=== PATIENT | female | born 1990 | race Caucasian/White ===

== ENCOUNTER → 2017-05-16 18:59 | Outpatient (CLI) | payer BC, SELFPAY ==
[2017-05-16 21:27] LABS: Group B Strep DNA By PCR Negative (Negative); Internal Control PASS; Probe Check PASS; Specimen Processing Control PASS
== END ==
PROVIDERS: Family Provider Family Medicine; PCP Family Medicine; Visit Provider Obstetrics & Gynecology
DX: Z34.83 Encounter for supervision of other normal pregnancy, third trimester (principal)
CPT/HCPCS: 87081; 87653

== ENCOUNTER → 2017-05-23 17:03 | Outpatient (CLI) | payer BC, SELFPAY ==
[2017-05-23 18:10] LABS: Hematocrit 36.5 % (37-47); Hemoglobin 12.3 g/dl (12.0-15.0); Mean Corp Hgb Conc 33.7 g/gl (32-36); Mean Corpuscular Hgb 29.7 pg (27.0-32.0); Mean Corpuscular Volume 88.2 fL (81-99); Mean Platelet Vol. 12.3 fl (6.2-12.0); Platelet Count 124 K/mm3 (150-450); RBC Distribution Width CV 13.1 % (11.6-14.6); RBC Distribution Width SD 40.1 fl (35.1-43.9); Red Blood Count 4.14 M/mm3 (4.2-5.4); Scan Indicated on CBC? Y/N NO; White Blood Count 9.9 K/mm3 (4.4-11.0)
== END ==
PROVIDERS: Visit Provider Obstetrics & Gynecology
DX: D69.6 Thrombocytopenia, unspecified (principal)
CPT/HCPCS: 36415; 85027

== ENCOUNTER 2017-06-10 18:00 | Inpatient (IN) | payer BC, SELFPAY ==
[2017-06-10 17:06] VITALS: BMI 32.9
[2017-06-10 17:42] LABS: ROM Internal Control Test YES-OK TO RESULT pt. (Internal QC); ROM Patient Test POSITIVE (Negative)
[2017-06-10] MEDS: Oxytocin 30 units/NS 500 ml 30 UNITS/500 ML IV.SOLN IV (19:08)
[2017-06-10 19:12] LABS: Hematocrit 37.9 % (37-47); Hemoglobin 12.6 g/dl (12.0-15.0); Mean Corp Hgb Conc 33.2 g/gl (32-36); Mean Corpuscular Volume 87.1 fL (81-99); Mean Platelet Vol. 12.1 fl (6.2-12.0); Platelet Count 127 K/mm3 (150-450); RBC Distribution Width CV 13.8 % (11.6-14.6); RBC Distribution Width SD 43.9 fl (35.1-43.9); Red Blood Count 4.35 M/mm3 (4.2-5.4); Scan Indicated on CBC? Y/N NO; White Blood Count 8.5 K/mm3 (4.4-11.0)
[2017-06-10] MEDS: Lactated Ringers 1,000 ML 50 ML IV (19:17)
--- NOTE | 2017-06-10 19:30 | NURSING ---
patient states she wants to breastfeed and formula supplement, too. education given and risks/benefits discussed.
[2017-06-11] VITALS (14 sets, daily range): BP systolic 110–133; BP diastolic 50–81; PULSE 75–103; RESP 13–20; TEMP 36.4–37.4; O2SAT 98–100
[2017-06-11] MEDS: Lactated Ringers 1,000 ML 50 ML IV ×3 (01:41→11:55)
--- NOTE | 2017-06-11 02:47 | PCM.PN.BLA ---
Progress Note LABOR PROGRESS NOTE 40 5/7 wk EGA +SROM, unfavorable cervix. Narrow pelvis. Suspect CPD AVSS EFM: Category I 120-130s avg variability with accels to 150-170s. UCs coupling and spacing at times, with UC q 1-5 min Cervix: 0/-3 at approx 1705 on 06/10/17 (presentation) A/P 40+ wk SROM; continue pitocin for up to 24 hr if tolerance of labor. Strongly suspect CPD and pt aware of this via ofc discussion. States her mother needed C/S for not dilating. Continue induction of labor after SROM until criteria met for C/S
[2017-06-11] MEDS: Ondansetron 4 MG/2 ML Vial IV (04:33)
--- NOTE | 2017-06-11 08:08 | PCM.PN.BLA ---
Progress Note INDUCTION AFTER SROM approx 5 pm last night. Now with mec stained fluid Pitocin since admission Epidural in place. EFM category I tracing. UCs q 3-4 mins Progressed to anterior lip 40 4/7 wk EGA . SROM narrow pelvis and presented with unfavorable cervix. Adequate progress. ALLOW TO LABOR DOWN FOR ONE HOUR MAXIMUM and then begin pushing for up to 4 hrs. Continue labor.
--- NOTE | 2017-06-11 10:09 | PCM.PN.BLA ---
Progress Note 40 5/7 wk SROM with unfavorable cvervix at presentation. Narrow arch Epidural in place Pitocin induction after SROM EFM catogory I tracing. 120-140s overall. Accels to 150s-160s. Early decels noted. One episode during cervix check of FHR with good variability but with decleration of FHT to as low as 90's (up to 3-4 min in 90's but with intermittent return and full rturn to baseline after 6-7 mins -- occured approx 7:30 am with check then) UCs q 1 - 4 1/2 mins Cervix check at 7:30 am and again when I saw pt last both with lip at R side. Adan bulb reduced with my last check. No change in cervix per information in computer Call placed to Felisa who has pt in high seated position and plans to recheck pt soon. Will call back with updated exam . A/P: 40 5/7 wk narrow pelvis. SROM and adequate progress to anterior lip more than 2 hrs ago. Rechecking cervix. Continue labor until failure to progress 4 hr with adqeuate UC / 6 hr with inadquate UCs or if failure to descend after 4 hours of pushing.
--- NOTE | 2017-06-11 12:14 | PCM.PN.BLA ---
Progress Note LABOR PROGRESS NOTE 40 5/7 wk Pitocin induction after SROM last night 5 pm approx. Reported complete at 11:36 check Adan bulb reduced by nurse, and replaced superior to vtx reports blood tinged urine to very little urine out EFM: Category I tracing. 120-130s with accels avg variability. some earlies UCs q 1-4 mins. at times dysfunctional appearing. A/P: 40 5/7 wk SROM , Pitocin induction after SROM. Progressed to complete. Likely inadequate pelvis . Begin pushing and will allow pushing for up to 4 hrs. Pt advised in ofc of all findings including potential long labor , pushing and ending in C section. Will continue labor for now with pushing for up to 4 hrs.
--- NOTE | 2017-06-11 13:48 | PCM.PN.BLA ---
Progress Note LABOR PROGRESS NOTE Comfortable w/ epidural. AVSS Pitocin induction after SROM last night at 5 PM. EFM category I tracing. complete since 12:38... and pushing last 1 1/2 hr (approx) of time since called complete. UCs appear adequate. CX: vtx remains high. LOP. A/P : 40 5/7 wk SROM 9 hr ago. Complete and pushing but no descent at this point. Discussed finding with pt and spouse, family member in room. Again, likely CPD and pt has been advised of this. May continue to push for 3-4 hours. Patient states she is willing to push for 3 hrs. will continue to push for now to given maximum trial of vaginal delivery.
--- NOTE | 2017-06-11 13:52 | PN_ITS ---
Progress Note LABOR PROGRESS NOTE Comfortable w/ epidural. AVSS Pitocin induction after SROM last night at 5 PM. EFM category I tracing. complete since 12:38... and pushing last 1 1/2 hr ( approx) of time since called complete. UCs appear adequate. CX: vtx remains high. LOP. A/P : 40 5/7 wk SROM 9 hr ago. Complete and pushing but no descent at this point. Discussed finding with pt and spouse, family member in room. Again, likely CPD and pt has been advised of this. May continue to push for 3-4 hours. Patient states she is willing to push for 3 hrs. will continue to push for now to given maximum trial of vaginal delivery.
--- NOTE | 2017-06-11 15:00 | PCM.PN.BLA ---
Progress Note LABOR PROGRES NOTE Pt complete since 11:30 am. AVSS Category I tracing. UCs appear adequate Bloody urine in dye bag. EXAM: no further descent in 3 1/2 hrs. Pt declines further pushing and is requesting to proceed with C section. A/P: 40 5/7 wk SROM x 10 hr, to complete 3 1/2 hr ago with pushing almost 3 hrs. DECLINES FURTHER PUSHING AND REQUESTING C section at this point. Will proceed to C/S for CPD.
--- NOTE | 2017-06-11 15:08 | PCM.DCCSEC ---
Discharge Diet: No Restrictions Discharge Activity: May not drive while taking narcotic pain medications., May Shower, May Take a Tub Bath May resume sexual activity in: 4-6 weeks Lifting Restrictions: 20 pounds Additional Activity Instructions:: Nothing in the vagina for 4-6 weeks. You may return to work/school in 6 weeks. Change Dressing in (Days):: 14 Remove Dressing in (days):: 14 Cleanse incision/area with: Soap & Water, Keep Dressing Clean & Dry Additional Instructions: If you experience any of the following, contact your healthcare provider. Bleeding that soaks a pad every hour for 2 hours Fever 100.4 or higher Unrelieved incision or abdominal pain Swelling, redness, discharge or bleeding from your incision Problems urinating (including inability to urinate or burning while urinating). Visual changes Severe headache Flu-like symptoms Pain or redness in one of both of your breasts Pain, warmth, tenderness or swelling in your legs, especially the calf area Frequent nausea and vomiting Symptoms of depression or anxiety If you experience any of the following, call 911 or go to the nearest Emergency Room. Chest pain Problems breathing Seizure activity Partial or complete paralysis of a body part, slurred speech, weakness or drooping of the face, or a sudden inability to walk or hold your balance Allergies/Adverse Reactions: Allergies No Known Allergies Allergy (Verified 06/10/17 19:55) Medications to take at Discharge Vit No.130/Iron/FA [ Tablet] 1 tab PO DAILY 06/10/17 Docusate Sodium [Colace] 100 mg PO BID 14 Days #30 cap 06/11/17 Naproxen [Naprosyn] 250 - 500 mg PO TID PRN #30 tab 06/11/17 Oxycodone [Oxyir] 5 - 10 mg PO Q6H PRN PRN 7 Days #28 tab 06/11/17 The following prescriptions were given: Oxycodone [Oxyir] 5 - 10 mg PO Q6H PRN PRN 7 Days #28 tab PRN Reason: Mod-Severe Pain (-01/25) Docusate Sodium [Colace] 100 mg PO BID 14 Days #30 cap Naproxen [Naprosyn] 250 - 500 mg PO TID PRN #30 tab PRN Reason: Mild-Mod Pain (1-08/25) Orders to be completed after discharge: Electric breast pump Time Frame: 1 Year, Location: None Selected Follow-Up: Call to make an appointment with your doctor for an incision check in 1-2 weeks. You will also need a 6 week post- follow up appointment. Please Follow Up With: Stella Washburn MD - [phone] When: Call to make an appointment for an incision check in 2 weeks. Primary Care Physician: Dale Hoffmann DO [Primary Care Provider] - Proposed Discharge Date: 06/14/17
[2017-06-11] MEDS: Sodium Citrate/Citric Acid 30 ML UDC PO (15:13)
--- NOTE | 2017-06-11 15:13 | DCINST_ITS ---
Discharge Diet: No Restrictions Discharge Activity: May not drive while taking narcotic pain medications., May Shower, May Take a Tub Bath May resume sexual activity in: 4-6 weeks Lifting Restrictions: 20 pounds Additional Activity Instructions:: Nothing in the vagina for 4-6 weeks. You may return to work/school in 6 weeks. Change Dressing in (Days):: 14 Remove Dressing in (days):: 14 Cleanse incision/area with: Soap & Water, Keep Dressing Clean & Dry Additional Instructions: If you experience any of the following, contact your healthcare provider. * Bleeding that soaks a pad every hour for 2 hours * Fever 100.4 or higher * Unrelieved incision or abdominal pain * Swelling, redness, discharge or bleeding from your incision * Problems urinating (including inability to urinate or burning while urinating) . * Visual changes * Severe headache * Flu-like symptoms * Pain or redness in one of both of your breasts * Pain, warmth, tenderness or swelling in your legs, especially the calf area * Frequent nausea and vomiting * Symptoms of depression or anxiety If you experience any of the following, call 911 or go to the nearest Emergency Room. * Chest pain * Problems breathing * Seizure activity * Partial or complete paralysis of a body part, slurred speech, weakness or drooping of the face, or a sudden inability to walk or hold your balance Allergies/Adverse Reactions: Allergies No Known Allergies Allergy (Verified 06/10/17 19:55) Medications to take at Discharge Vit No.130/Iron/FA [ Tablet] 1 tab PO DAILY 06/10/17 Docusate Sodium [Colace] 100 mg PO BID 14 Days #30 cap 06/11/17 Naproxen [Naprosyn] 250 - 500 mg PO TID PRN #30 tab 06/11/17 Oxycodone [Oxyir] 5 - 10 mg PO Q6H PRN PRN 7 Days #28 tab 06/11/17 The following prescriptions were given: Oxycodone [Oxyir] 5 - 10 mg PO Q6H PRN PRN 7 Days #28 tab PRN Reason: Mod-Severe Pain (-01/25) Docusate Sodium [Colace] 100 mg PO BID 14 Days #30 cap Naproxen [Naprosyn] 250 - 500 mg PO TID PRN #30 tab PRN Reason: Mild-Mod Pain (1-5/10) Orders to be completed after discharge: Electric breast pump Time Frame: 1 Year, Location: None Selected Follow-Up: Call to make an appointment with your doctor for an incision check in 1-2 weeks. You will also need a 6 week post- follow up appointment. Please Follow Up With: Stella Washburn MD - [phone] When: Call to make an appointment for an incision check in 2 weeks. Primary Care Physician: Dale Hoffmann DO [Primary Care Provider] - Proposed Discharge Date: 06/14/17
[2017-06-11] MEDS: Lactated Ringers 1,000 ML 999 ML IV (15:30)
[2017-06-11] MEDS: Cefazolin 2 GM in 0.9% Normal Saline 100 ML IV (15:40)
--- NOTE | 2017-06-11 15:48 | PLAC_PTH ---
PATIENT: EZRA SLAUGHTER LOC: [facility] U#:[id number] AGE/SX: 26/F ROOM: [facility] RE06/10/[address]: Dr. Stella Washburn MD : 1990 BED: 1 DIS: 06/14/2017 SPEC #: [id number] RECD: 06/11/17 16:56 STATUS: PITER VAIBHAV #: [id number] ANA: 06/11/17 15:[address]: Stella Washburn DEPT: SURGICAL PATHOLOGY RECD BY: Syed Estrada ENTERED: 06/14/17 08:41 SP TYPE: PLACENTA OTHR DR: Dr. Dale Hoffmann, DO Tissues: Placenta, NOS Procedures: Surgery Specimen Level V HEADER OPERATION: Primary section PRE-OP DIAGNOSIS: 40 5/7 wk EGA , cephalopelvic disproportion TISSUE SUBMITTED: Placenta MICROSCOPIC DIAGNOSIS Placenta: Placental disc - third trimester placenta (714 gm). - Focal villous congestion and hemorrhage. Membranes - no pathologic diagnosis. Umbilical cord - three blood vessels and no pathologic diagnosis. KRISTINE:chan 06/15/17 MICROSCOPIC DESCRIPTION Slides are reviewed. GROSS DESCRIPTION SPECIMEN: PLACENTA / CLINICAL INFORMATION: A. Weight: 4.192 kg B. Gestational Age: 40 weeks C. Sex: Male PLACENTAL WEIGHT (POST FIXATION): 714 gm PLACENTAL DIMENSIONS: 19 x 18 x 3.5 cm PLACENTAL SHAPE: Usual ovoid PLACENTAL WEIGHT FOR GESTATIONAL AGE: Over 99th percentile MEMBRANES ? Present. A. Insertion: Marginal B. Site of rupture from edge: The membranes are disrupted. Distance of rupture cannot be assessed due to the disrupted nature of the membranes. Only a few fragments of membrane are noted. Completeness of the membranes cannot be assessed. C. Color of membrane: Trejo, mucoidy D. Abnormalities: None UMBILICAL CORD - Present A. Color: Trejo-meng B. Insertion: Paracentral C. Length: 44 cm D. Diameter: 1 cm E. Number of vessels: Three F. Abnormalities: None PLACENTAL DISC - Present A. Color of surface: Trejo-meng B. surface abnormalities: None C. Maternal cotyledons: Intact with minimal tears D. Attached retro placental clot: No clot E. Cut surface: Dark red and spongy F. Lesions: None G. Separate clot: Absent SECTIONS SUBMITTED: 1. Membrane roll 2. Cord, maternal end 3. Cord, end 4. Placental disc, and maternal surfaces 5. Placental disc, and maternal surfaces 6. Placental disc, and maternal surfaces SJ:chan 06/14/17 TC:5 CPT: 49660
[2017-06-11] MEDS: Methylergonovine 0.2 MG/ML Ampul IM (15:54)
[2017-06-11] MEDS: Oxytocin 30 units/NS 500 ml 30 UNITS/500 ML IV.SOLN 167 UNITS IV (16:00)
[2017-06-11] MEDS: Lactated Ringers 1,000 ML 100 ML IV (16:00)
[2017-06-11] MEDS: Ketorolac 30 MG/ML Syringe IV ×2 (16:05→21:34)
--- NOTE | 2017-06-11 16:11 | PCM.OP.BLANK ---
Operative Report Date of Procedure: 06/11/17 PROCEDURE: Primary C section Preoperative diagnosis: 40 5/7 wk EGA SROM, Pitocin induction Cephalopelvic disproportion Postop diagnosis: 40 5/7 wk EGA SROM, Pitocin induction Cephalopelvic disproportion Anesthesia: Epidural per Beata Barnes MD and Kali Enriquez CRNA Surgeon: Stella Washburn MD Retail Sales Merchandiser Development: DICK Veloz EBL 800 cc Complications: none Drains: Adan draining bloody urine at the beginning of the case, and clear yellow urine by the end of the case Fluids: replacement LR Findings: At amniotomy, meconium stained fluid was noted. [place] viable male in vertex presentation, OP. Apgars 9/9, Baby weight: 9# 15 oz There was a normal appearing uterus, fallopian tubes and ovaries bilaterally. PATH: Cord gases, placenta to path. Narrative account: After the risks, benefits and alternatives of the procedure were reviewed with the patient, informed consent was obtained. The patient was taken to the Operating room with an IV running,an epidural catheter in place and a Adan in place (draining blood tinged urine). The epidural was dosed to surgical levels. The patient was positioned in dorsal supine position with leftward displacement of the uterus , briefly frog-legged for vaginal vault prep, and then repositioned again to dorsal supine position with leftward displacement of the uterus, and prepped and draped in the usual sterile fashion. Once the epidural was deemed adequate, a Pfannenstiel skin incision was created using the knife . The incision was carried down to the rectus fascia using the knife. The fascia was nicked in the midline. The fascial incision was extended bilaterally using curved Franklin scissors. The superior aspect of the fascial incision was grasped with Nubia clamps and tented up and the underlying rectus abdominal muscles were dissected free. In a similar manner, the inferior aspect of the facial incision was grasped with Nubia clamps tented up and the underlying rectus abdominal muscles were dissected free. The rectus abdominis muscles were divided by blunt dissection and sharp dissection. The peritoneum was was identified and entered by blunt dissection. The rectus abdominis muscles and peritoneal incision were stretched laterally and a bladder blade was inserted. A bladder flap was created with Metzenbaum scissors and the bladder blade was removed and reinserted. The uterine incision was then created using Metzenbaum scissors. The uterine incision was extended by blunt dissection in a caudad- cephalad orientation using the pickling drum operator's fingertips. Clear fluid was noted at amniotomy. The Vertex was then delivered. followed by the anterior (R) shoulder and then the posterior (L) shoulder. The shoulders and rest of the body delivered easily. The OP and nares were bulb suctioned on the abdomen. The cord was clamped x two and cut and the baby was shown briefly to his parents and then passed off to the nurse awaiting delivery and Dr Dang. The baby had a spontaneous vigorous cry and very good tone . The umbilical cord was doubly clamped. The placenta was then delivered and set aside . The uterus was exteriorized and cleared of clots and debris . The uterine incision was repaired with 1 Vicryl in a running locked fashion. A second imbricating layer was placed along the incision using 1 Monocryl. Excellent hemostasis was noted. The uterus, fallopian tubes and ovaries were then inspected and returned to the abdominal cavity. The gutters were cleared of clots and debris. The uterine incision and fallopian tubes were again inspected. And excellent hemostasis was noted. The rectus abdominis and peritoneal edges were reapproximated in the midline with interrupted vertical mattress stitches of 1 Vicryl . Excellent hemostasis was noted at the subfascial space The fascia was closed in a running nonlocked fashion with 1 Vicryl. The Subcutaneous fatty tissue was Bovie cauterized as needed for hemostasis. This layer was then reapproximated with a nonlocked running 3-0 Vicryl. The skin edges were closed in a Subcuticular stitch of 4-0 Monocryl. The incision was cleansed. Seri-strips, and a Mepilex dressing were applied. The patient was then transferred to the recovery room bed in stable condition after tolerating the procedure well. Sponge, lap, needle and instrument counts correct times two. Medications given preop and intraoperatively included: Ancef two grams IV was given chief librarian extension department to the operating room. The patient also received Pitocin given IV after cord clamp, and Toradol 30 mg IV after cord clamp. Methergine 0.2 mg IM x one in L thigh was also given for mild uterine atony noted just after delivery of the infant. For a complete listing of medications given preop and intraoperatively, please see the anesthesia record.
--- NOTE | 2017-06-11 16:21 | OP.PCM_ITS ---
Operative Report Date of Procedure: 06/11/17 PROCEDURE: Primary C section Preoperative diagnosis: 40 5/7 wk EGA SROM, Pitocin induction Cephalopelvic disproportion Postop diagnosis: 40 5/7 wk EGA SROM, Pitocin induction Cephalopelvic disproportion Anesthesia: Epidural per Beata Barnes MD and Kali Enriquez CRNA Surgeon: Stella Washburn MD Animal Herder: DICK Veloz EBL 800 cc Complications: none Drains: Adan draining bloody urine at the beginning of the case, and clear yellow urine by the end of the case Fluids: replacement LR Findings: At amniotomy, meconium stained fluid was noted. [place] viable male in vertex presentation, OP. Apgars 9/9, Baby weight: 9# 15 oz There was a normal appearing uterus, fallopian tubes and ovaries bilaterally. PATH: Cord gases, placenta to path. Narrative account: After the risks, benefits and alternatives of the procedure were reviewed with the patient, informed consent was obtained. The patient was taken to the Operating room with an IV running,an epidural catheter in place and a Adan in place (draining blood tinged urine). The epidural was dosed to surgical levels. The patient was positioned in dorsal supine position with leftward displacement of the uterus , briefly frog-legged for vaginal vault prep, and then repositioned again to dorsal supine position with leftward displacement of the uterus, and prepped and draped in the usual sterile fashion. Once the epidural was deemed adequate, a Pfannenstiel skin incision was created using the knife . The incision was carried down to the rectus fascia using the knife. The fascia was nicked in the midline. The fascial incision was extended bilaterally using curved Franklin scissors. The superior aspect of the fascial incision was grasped with Nubia clamps and tented up and the underlying rectus abdominal muscles were dissected free. In a similar manner, the inferior aspect of the facial incision was grasped with Nubia clamps tented up and the underlying rectus abdominal muscles were dissected free. The rectus abdominis muscles were divided by blunt dissection and sharp dissection. The peritoneum was was identified and entered by blunt dissection. The rectus abdominis muscles and peritoneal incision were stretched laterally and a bladder blade was inserted. A bladder flap was created with Metzenbaum scissors and the bladder blade was removed and reinserted. The uterine incision was then created using Metzenbaum scissors. The uterine incision was extended by blunt dissection in a caudad- cephalad orientation using the vulcanizing press operator's fingertips. Clear fluid was noted at amniotomy. The Vertex was then delivered. followed by the anterior (R) shoulder and then the posterior (L ) shoulder. The shoulders and rest of the body delivered easily. The OP and nares were bulb suctioned on the abdomen. The cord was clamped x two and cut and the baby was shown briefly to his parents and then passed off to the nurse awaiting delivery and Dr Dang. The baby had a spontaneous vigorous cry and very good tone . The umbilical cord was doubly clamped. The placenta was then delivered and set aside . The uterus was exteriorized and cleared of clots and debris . The uterine incision was repaired with 1 Vicryl in a running locked fashion. A second imbricating layer was placed along the incision using 1 Monocryl. Excellent hemostasis was noted. The uterus, fallopian tubes and ovaries were then inspected and returned to the abdominal cavity. The gutters were cleared of clots and debris. The uterine incision and fallopian tubes were again inspected. And excellent hemostasis was noted. The rectus abdominis and peritoneal edges were reapproximated in the midline with interrupted vertical mattress stitches of 1 Vicryl . Excellent hemostasis was noted at the subfascial space The fascia was closed in a running nonlocked fashion with 1 Vicryl. The Subcutaneous fatty tissue was Bovie cauterized as needed for hemostasis. This layer was then reapproximated with a nonlocked running 3-0 Vicryl. The skin edges were closed in a Subcuticular stitch of 4-0 Monocryl. The incision was cleansed. Seri-strips , and a Mepilex dressing were applied. The patient was then transferred to the recovery room bed in stable condition after tolerating the procedure well. Sponge, lap, needle and instrument counts correct times two. Medications given preop and intraoperatively included: Ancef two grams IV was given appellate conferee to the operating room. The patient also received Pitocin given IV after cord clamp, and Toradol 30 mg IV after cord clamp. Methergine 0.2 mg IM x one in L thigh was also given for mild uterine atony noted just after delivery of the . For a complete listing of medications given preop and intraoperatively, please see the anesthesia record.
--- NOTE | 2017-06-11 18:51 | NURSING ---
EPIDURAL CATHETER REMOVED, BLUE TIP INTACT. PT TOLERATED WELL.
[2017-06-12] VITALS (13 sets, daily range): BP systolic 109–133; BP diastolic 52–71; PULSE 79–99; RESP 16–18; TEMP 36.6–37.2; O2SAT 97–100
[2017-06-12] MEDS: Ketorolac 30 MG/ML Syringe IV ×4 (03:39→21:58)
[2017-06-12] MEDS: Lactated Ringers 1,000 ML 100 ML IV (04:38)
[2017-06-12 06:10] LABS: Hematocrit 30.5 % (37-47); Hemoglobin 9.9 g/dl (12.0-15.0); Mean Corp Hgb Conc 32.5 g/gl (32-36); Mean Corpuscular Hgb 28.4 pg (27.0-32.0); Mean Corpuscular Volume 87.6 fL (81-99); Mean Platelet Vol. 11.6 fl (6.2-12.0); Platelet Count 76 K/mm3 (150-450); RBC Distribution Width CV 13.9 % (11.6-14.6); RBC Distribution Width SD 44.5 fl (35.1-43.9); Red Blood Count 3.48 M/mm3 (4.2-5.4); White Blood Count 12.6 K/mm3 (4.4-11.0)
[2017-06-12 06:30] LABS: Scan Indicated on CBC? Y/N NO
--- NOTE | 2017-06-12 08:01 | PCM.PN.OB ---
Subjective: POD#1 Primary C Section for CPD. Doing well. Breast feeding well. No concerns. Pain control adequate. no N/V. Asking about eating. - Physical Exam General: Alert, Oriented x3, Cooperative, No apparent distress HEENT: Atraumatic Neck: Supple Abdomen: Soft - fundus firm tender cw postop status at 1-2 cm inferior to umbilicus Extremities: Edema Skin: Incision - Mepilex in place. CDI. Neurological: Cranial nerves II-XII grossly intact Psych/Mental Status: Normal Affect Vital Signs Temp Pulse Resp BP Pulse Ox 97.8 F 91 16 115/64 100 06/12/17 07:36 06/12/17 07:36 06/12/17 07:36 06/12/17 07:36 06/12/17 07:36 Oxygen Delivery Method Room Air Weight: 89.8 kg Body Mass Index (BMI) 32.9 Intake and Output for Last 24 Hours 06/10/17 06/11/17 06/12/17 23:59 23:59 23:59 Intake Total 50 / 50 5893 / 5893 948 / 948 Output Total 500 / 500 1250 / 1250 550 / 550 Balance -450 / -450 4643 / 4643 398 / 398 Laboratory Tests Past 24 Hrs 06/12/17 05:55 WBC 12.6 H RBC 3.48 L Hgb 9.9 L Hct 30.5 L MCV 87.6 MCH 28.4 MCHC 32.5 RDW 13.9 RDW Differential 44.5 H Plt Count 76 L MPV 11.6 Assessment/Plan POD#1 Primary C section for CPD Stable postop. Inc diet and activity as tolerated. D/C dye for voiding trial. IV to S/L for continued toradol. Continue care.
[2017-06-12] MEDS: Ferrous Sulfate 325 MG Tablet PO ×2 (09:18→16:12)
[2017-06-12] MEDS: 0.9% Saline Lock 10 ML Syringe IV ×2 (09:18→15:19)
[2017-06-12] MEDS: Prenatal Vits Tablet 1 TABLET PO (11:48)
[2017-06-12] MEDS: Senna/Docusate Sodium 1 Tablet PO (11:48)
[2017-06-12] MEDS: oxyCODONE 5 MG Tablet PO ×2 (16:12→20:31)
[2017-06-13 01:48] VITALS: BP 105/59; PULSE 82; RESP 16; TEMP 36.6
[2017-06-13] MEDS: Ketorolac 30 MG/ML Syringe IV ×2 (03:10→10:15)
[2017-06-13] MEDS: 0.9% Saline Lock 10 ML Syringe IV ×2 (03:10→10:16)
[2017-06-13] MEDS: oxyCODONE 5 MG Tablet PO ×5 (03:20→22:00)
--- NOTE | 2017-06-13 07:56 | PCM.DC.SUM ---
Discharge Date and Diagnosis Date of Admission: 06/10/17 - 40+ wk likely CPD. SROM Date of Discharge: 06/13/17 - S/P induction of labor to C/S Hospital Course and Treatment Operations: - - Induction of labor C section delivery for CPD Summary of Care Provided: The patient is a 26 year old female who presents at 5 pm on 06/10/17 with CC of gush of fluid. Vtx high and unfavorable cervix. Pt advised in ofc of likely CPD given pelvis. Admittent and pitocin induction initiated. Progressed to complete after several hours at 9 cm/ anterior lip. C section performed at pt request: no further descent and pushed approx 3 hrs (willing to push 3 hr, not more). Delivered 9# 15 oz male. Ap 12/25. C section uncomplicated Postop course uneventful. Home on POD#2 (or may elect to stay until POD#3) RTO in 2 wk for postop check. Discharge Diet: No Restrictions Discharge Activity: May not drive while taking narcotic pain medications., May Shower, May Take a Tub Bath May resume sexual activity in: 4-6 weeks Additional Activity Instructions:: Nothing in the vagina for 4-6 weeks. You may return to work/school in 6 weeks. Change Dressing in (Days):: 14 Remove Dressing in (days):: 14 Cleanse incision/area with: Soap & Water, Keep Dressing Clean & Dry Home Medications: Medications to take at Discharge Vit No.130/Iron/FA [ Tablet] 1 tab PO DAILY 06/10/17 Docusate Sodium [Colace] 100 mg PO BID 14 Days #30 cap 06/11/17 Naproxen [Naprosyn] 250 - 500 mg PO TID PRN #30 tab 06/11/17 Oxycodone [Oxyir] 5 - 10 mg PO Q6H PRN PRN 7 Days #28 tab 06/11/17 Following Prescrptions Were Given to Patient: Oxycodone [Oxyir] 5 - 10 mg PO Q6H PRN PRN 7 Days #28 tab PRN Reason: Mod-Severe Pain (4-10/10) Docusate Sodium [Colace] 100 mg PO BID 14 Days #30 cap Naproxen [Naprosyn] 250 - 500 mg PO TID PRN #30 tab PRN Reason: Mild-Mod Pain (1-5/10) Other Amb Orders: Electric breast pump Time Frame: 1 Year, Location: None Selected Primary Care Physician: Dale Hoffmann DO [Primary Care Provider] - Please Follow Up With: Stella Washburn MD - [phone] When: Call to make an appointment for an incision check in 2 weeks. Meaningful Use Info Meaningful Use Diagnoses (Choose all that apply): None applicable
--- NOTE | 2017-06-13 07:59 | PCM.PN.OB ---
Subjective: POD#2 Primary C/S CPD Drowsy , rouses to voice and touch. States tired. Nursing baby, but baby not wanting to nurse last night so gave a bottle which he drank well. She is considering pumping to bottle feed breast milk Voiding well. No BM yet. - Physical Exam General: Alert, Oriented x3, Cooperative, No apparent distress HEENT: Atraumatic Neck: Supple Abdomen: Soft - Tender consistent with postop check, at approx 1 cm superior to umbilicus Neurological: Cranial nerves II-XII grossly intact Psych/Mental Status: Normal Affect Vital Signs Temp Pulse Resp BP Pulse Ox 97.8 F 82 16 105/59 L 99 06/13/17 01:48 06/13/17 01:48 06/13/17 01:48 06/13/17 01:48 06/12/17 19:46 Oxygen Delivery Method Room Air Weight: 89.8 kg Body Mass Index (BMI) 32.9 Intake and Output for Last 24 Hours 06/11/17 06/12/17 06/13/17 23:59 23:59 23:59 Intake Total 5893 / 5893 2587 / 2587 Output Total 1250 / 1250 2100 / 2100 Balance 4643 / 4643 487 / 487 Assessment/Plan POD#2 Primary C section for CPD Stable postop. D/C home today or tomorrow per pt request. would like to see how the day goes , would like to go home today. D/C saline lock.
[2017-06-13 08:15] VITALS: BP 117/65; PULSE 84; RESP 16; TEMP 36.8; O2SAT 97
[2017-06-13] MEDS: Senna/Docusate Sodium 1 Tablet PO (08:57)
[2017-06-13] MEDS: Ferrous Sulfate 325 MG Tablet PO ×2 (08:57→17:13)
[2017-06-13] MEDS: Hydrocortisone 2.5% Crm 1 APPLIC TOPICAL (08:59)
[2017-06-13] MEDS: Prenatal Vits Tablet 1 TABLET PO (12:56)
[2017-06-13 14:00] VITALS: BP 113/63; PULSE 74; RESP 16; TEMP 36.8; O2SAT 97
[2017-06-13] MEDS: Naproxen 250 MG Tablet PO (18:33)
[2017-06-13 20:05] VITALS: BP 118/77; PULSE 83; RESP 18; TEMP 36.8; O2SAT 96
[2017-06-13] MEDS: Acetaminophen 500 MG Tablet 1000 MG PO (21:59)
[2017-06-14] MEDS: Naproxen 250 MG Tablet PO ×2 (02:37→10:22)
[2017-06-14 02:39] VITALS: BP 122/75; PULSE 88; RESP 16; TEMP 36.2; O2SAT 99
[2017-06-14] MEDS: oxyCODONE 5 MG Tablet PO (06:04)
--- NOTE | 2017-06-14 07:26 | PCM.PN.OB ---
Subjective: POD#3 elected to stay last night . Had BM yesterday. Voiding well. Doing well. Pain control adequate milk in now. Dressing still in place and would like to leave it for now. Ready to go home today. - Physical Exam General: Alert, Oriented x3, Cooperative, No apparent distress HEENT: Atraumatic Neck: Supple Abdomen: Soft - Fundus firm tender c/w postop status and superior to umbilicus x 2 cm. Skin: Incision - dressing CDI Psych/Mental Status: Normal Affect Vital Signs Temp Pulse Resp BP Pulse Ox 97.1 F L 88 16 122/75 H 99 06/14/17 02:39 06/14/17 02:39 06/14/17 02:39 06/14/17 02:39 06/14/17 02:39 Oxygen Delivery Method Room Air Weight: 89.8 kg Body Mass Index (BMI) 32.9 Intake and Output for Last 24 Hours 06/12/17 06/13/17 06/14/17 23:59 23:59 23:59 Intake Total 2587 / 2587 Output Total 2100 / 2100 Balance 487 / 487 Assessment/Plan POD#3 Primary C section for CPD Stable postop. D/C home today RTO in 1 wk (postop check and will remove mepilex then)
[2017-06-14 09:00] VITALS: BP 122/69; PULSE 83; RESP 16; TEMP 36.6; O2SAT 97
[2017-06-14] MEDS: Prenatal Vits Tablet 1 TABLET PO (10:22)
[2017-06-14] MEDS: Ferrous Sulfate 325 MG Tablet PO (10:23)
--- NOTE | 2017-06-14 11:36 | NURSING ---
baby bands verified by nurse and mother. mother signed baby discharge sheet.
[2017-06-16 10:52] LABS: Pathology Specimen OB SEE PATHOLOGY REPORT
== END 2017-06-14 11:50 | disposition home or self-care (01) | DRG 766 ==
LOC: WPOUT 18:21
PROVIDERS: Admitting Provider Obstetrics & Gynecology; Family Provider Family Medicine; PCP Family Medicine; Visit Provider Obstetrics & Gynecology
DX: O33.1 Maternal care for disproportion due to generally contracted pelvis (principal); O48.0 Post-term pregnancy; O77.0 Labor and delivery complicated by meconium in amniotic fluid; Z37.0 Single live birth; Z3A.40 40 weeks gestation of pregnancy; Z87.891 Personal history of nicotine dependence
CPT/HCPCS: 59025; 59050; 84112; 85027; 86850; 86900; 88307; 99218; J7120; A4216; G0378; J2405

== ENCOUNTER 2017-06-16 15:05 | Outpatient (CLI) | payer BC, SELFPAY | END 2017-06-16 16:15 | disposition home or self-care (01) | LOC: WPOUT 15:10 → WP 15:13 | PROVIDERS: Family Provider Family Medicine; PCP Family Medicine; Visit Provider Obstetrics & Gynecology | DX: Z39.1 Encounter for care and examination of lactating mother (principal) ==

== ENCOUNTER → 2019-08-24 16:03 | Outpatient (CLI) | payer OTHER, SELFPAY ==
[2019-08-24 08:40] VITALS: BMI 26.6
== END ==
PROVIDERS: PCP Family Medicine; Referring Provider Nurse Practitioner Women's Health; Visit Provider Nurse Practitioner Women's Health
DX: R30.0 Dysuria (principal)
CPT/HCPCS: 87086; 87088

== ENCOUNTER → 2019-09-06 17:07 | Outpatient (CLI) | payer OTHER, SELFPAY ==
[2019-09-06 12:58] VITALS: BMI 26.6
[2019-09-06 17:55] LABS: Amphetamine Urine VISTA NEGATIVE (<1000 ng/mL); Barbiturate Urine VISTA NEGATIVE (< 200 ng/mL); Benzodiazepine Urine VISTA NEGATIVE (< 200 ng/mL); Cocaine Urine VISTA NEGATIVE (< 300 ng/mL); Ecstacy Urine VISTA NEGATIVE (< 500 ng/mL); Methadone Urine VISTA NEGATIVE (< 300 ng/mL); PCP Urine VISTA NEGATIVE (< 25 ng/mL); THC Urine VISTA NEGATIVE (< 50 ng/mL); Vista UDS pH Range 6
[2019-09-06 18:52] LABS: Chlamydia Trachomatis by PCR Negative (Negative); Neisserai gonorrhoeae by PCR Negative (Negative); Probe Check PASS; Sample Adequacy Control PASS; Specimen Processing Control PASS
[2019-09-11 20:44] LABS: HPV Reflexed? NOT INDICATED
== END ==
PROVIDERS: PCP Family Medicine; Visit Provider Obstetrics & Gynecology
DX: Z12.4 Encounter for screening for malignant neoplasm of cervix (principal)
CPT/HCPCS: 80307; 87086; 87491; 87591; 88175; G0145

== ENCOUNTER → 2019-09-18 09:06 | Outpatient (CLI) | payer OTHER, SELFPAY ==
[2019-09-06 12:58] VITALS: BMI 26.6
[2019-09-18 10:03] LABS: Absolute Lymphocyte Count 1.14 X10^3/uL (0.83-4.51); Absolute Neutrophil Count 5.2 X10^3/uL (2.0-7.7); Basophil# 0.02 X10^3/uL; Basophil% 0.3 % (0-1); Eosinophil# 0.03 X10^3/uL; Eosinophils% 0.4 % (0-5); Hematocrit 39.1 % (37-47); Lymphocyte # 1.14 X10^3/ul (4.0); Lymphocyte % 16.7 % (19-41); Mean Corp Hgb Conc 33.2 g/dL (32-36); Mean Corpuscular Hgb 29.3 pg (27.0-32.0); Mean Corpuscular Volume 88.1 fL (81-99); Mean Platelet Vol. 11.7 fl (6.2-12.0); Monocyte# 0.46 X10^3/uL; Monocyte% 6.7 % (0-10); NRBC Flagged by Analyzer 0 % (0-5); Neutrophil # 5.15 X10^3/uL (2.7-7.7); Neutrophil % 75.6 % (47-70); Platelet Count 133 K/mm3 (150-450); RBC Distribution Width CV 12.3 % (11.6-14.6); Red Blood Count 4.44 M/mm3 (4.2-5.4); White Blood Count 6.8 K/mm3 (4.4-11.0)
[2019-09-18 11:15] LABS: HIV - WCH Non-Reactive (Nonreactive); Hepatitis B Surface Antigen Non-Reactive (Nonreactive); Hepatitis C Antibody Non-Reactive (Nonreactive); Rubella IgG 282.4 IU/mL
[2019-09-20 00:55] LABS: Rapid Plasmin Reagin (RPR) NONREACTIVE (NONREACTIVE)
== END ==
PROVIDERS: PCP Family Medicine; Referring Provider Obstetrics & Gynecology; Visit Provider Obstetrics & Gynecology
DX: Z34.81 Encounter for supervision of other normal pregnancy, first trimester (principal)
CPT/HCPCS: 36415; 85025; 86592; 86703; 86762; 86803; 86850; 86900; 86901; 87340

== ENCOUNTER → 2019-09-21 12:27 | Outpatient (CLI) | payer OTHER, SELFPAY ==
[2019-09-06 12:58] VITALS: BMI 26.6
--- NOTE | 2019-09-21 12:29 | US_ITS ---
STUDY: FIRST TRIMESTER OBSTETRICAL ULTRASOUND REASON FOR EXAM: Female, 29 years old WELL BEING LMP: July 06, 2019. TECHNIQUE: Transvaginal TECHNICAL QUALITY: Adequate. PRIOR ULTRASOUND: None. FINDINGS: There is visualization of a single gestational sac in a normal intrauterine position. The mean sac diameter (MSD) measures 5.88 cm. There is a visualized yolk sac. The yolk sac measures 6 mm. The placenta is non-visualized. There is visualization of a live embryo. The crown-rump length (CRL) measures 4.87 cm, indicating an estimated gestational age (EGA) of 11 weeks, 5 days. There is demonstrated cardiac activity with a heart rate of 169 bpm. The estimated gestation age (EGA) by LMP is 11 weeks, 0 days. The estimated date of delivery (ABRAM) by LMP is April 11, 2020. The estimated gestation age (EGA) by US is 11 weeks, 5 days. The estimated date of delivery (ABRAM) by US is April 06, 2020. The uterus measures 16.7 cm x 10.7 cm x 7 cm. There is no demonstrated uterine fibroid. The cervix is closed. There is funneling of the cervix. The closed portion of the cervix measures 2 cm. The right ovary is not visualized. The left ovary is not visualized. There is no fluid in the cul de sac. US/OB Limited With Biometrics IMPRESSION: Single live intrauterine gestation with a mean gestational age of 11 weeks and 5 days. Funneling of the cervix. The closed portion measures 2 cm. Electronically Signed: Pedro Barriga, at 14:14 EDT , Service support ,
== END ==
PROVIDERS: PCP Family Medicine; Referring Provider Obstetrics & Gynecology; Visit Provider Obstetrics & Gynecology
DX: O20.0 Threatened abortion (principal); Z3A.00 Weeks of gestation of pregnancy not specified
CPT/HCPCS: 76816; 76817

== ENCOUNTER → 2019-10-15 17:36 | Outpatient (CLI) | payer OTHER, SELFPAY ==
[2019-10-15 13:07] VITALS: BMI 26.9
== END ==
PROVIDERS: Referring Provider Nurse Practitioner Women's Health; Visit Provider Nurse Practitioner Women's Health
DX: R30.0 Dysuria (principal)
CPT/HCPCS: 87086; 87088

== ENCOUNTER → 2019-11-05 16:36 | Outpatient (CLI) | payer OTHER, SELFPAY ==
[2019-11-05 16:28] VITALS: BMI 26.6
== END ==
PROVIDERS: Referring Provider Obstetrics & Gynecology; Visit Provider Obstetrics & Gynecology
DX: O99.119 Other diseases of the blood and blood-forming organs and certain disorders involving the immune mechanism complicating pregnancy, unspecified trimester (principal); D69.6 Thrombocytopenia, unspecified; Z3A.00 Weeks of gestation of pregnancy not specified
CPT/HCPCS: 36415

== ENCOUNTER → 2019-11-06 09:13 | Outpatient (CLI) | payer OTHER, SELFPAY ==
[2019-11-05 16:28] VITALS: BMI 26.6
[2019-11-06 09:56] LABS: Absolute Lymphocyte Count 0.84 X10^3/uL (0.83-4.51); Basophil# 0.02 X10^3/uL; Basophil% 0.3 % (0-1); Eosinophil# 0.06 X10^3/uL; Eosinophils% 0.9 % (0-5); Hematocrit 35.4 % (37-47); Lymphocyte # 0.84 X10^3/ul (4.0); Lymphocyte % 13.2 % (19-41); Mean Corp Hgb Conc 33.9 g/dL (32-36); Mean Corpuscular Hgb 30.5 pg (27.0-32.0); Mean Corpuscular Volume 89.8 fL (81-99); Monocyte# 0.42 X10^3/uL; Monocyte% 6.6 % (0-10); NRBC Flagged by Analyzer 0 % (0-5); Neutrophil # 5.01 X10^3/uL (2.7-7.7); Neutrophil % 78.5 % (47-70); Platelet Count 109 K/mm3 (150-450); RBC Distribution Width CV 12.7 % (11.6-14.6); RBC Distribution Width SD 41.8 fl (35.1-43.9); Red Blood Count 3.94 M/mm3 (4.2-5.4); White Blood Count 6.4 K/mm3 (4.4-11.0)
== END ==
PROVIDERS: PCP Family Medicine; Referring Provider Obstetrics & Gynecology; Visit Provider Obstetrics & Gynecology
DX: O99.119 Other diseases of the blood and blood-forming organs and certain disorders involving the immune mechanism complicating pregnancy, unspecified trimester (principal); D69.6 Thrombocytopenia, unspecified; Z3A.00 Weeks of gestation of pregnancy not specified
CPT/HCPCS: 36415; 85025

== ENCOUNTER → 2020-01-04 14:29 | Outpatient (CLI) | payer OTHER, SELFPAY ==
[2019-12-07 10:45] VITALS: BMI 27.6
[2020-01-04 15:06] LABS: Absolute Lymphocyte Count 1.19 X10^3/uL (0.83-4.51); Absolute Neutrophil Count 6.1 X10^3/uL (2.0-7.7); Basophil# 0.01 X10^3/uL; Basophil% 0.1 % (0-1); Eosinophil# 0.06 X10^3/uL; Eosinophils% 0.8 % (0-5); Hemoglobin 11.9 g/dL (12.0-15.0); Lymphocyte # 1.19 X10^3/ul (4.0); Lymphocyte % 14.9 % (19-41); Mean Corp Hgb Conc 33.1 g/dL (32-36); Mean Corpuscular Hgb 30.1 pg (27.0-32.0); Mean Corpuscular Volume 90.9 fL (81-99); Mean Platelet Vol. 11.2 fl (6.2-12.0); Monocyte# 0.56 X10^3/uL; NRBC Flagged by Analyzer 0 % (0-5); Neutrophil # 6.08 X10^3/uL (2.7-7.7); Neutrophil % 76.4 % (47-70); Platelet Count 117 K/mm3 (150-450); RBC Distribution Width CV 12.7 % (11.6-14.6); RBC Distribution Width SD 41.7 fl (35.1-43.9); Red Blood Count 3.96 M/mm3 (4.2-5.4)
[2020-01-04 15:31] LABS: Glucose Challenge Gest 1H 50g 127 mg/dL (70-140)
== END ==
PROVIDERS: PCP Family Medicine; Referring Provider Obstetrics & Gynecology; Visit Provider Obstetrics & Gynecology
DX: O99.119 Other diseases of the blood and blood-forming organs and certain disorders involving the immune mechanism complicating pregnancy, unspecified trimester (principal); D69.6 Thrombocytopenia, unspecified; Z13.1 Encounter for screening for diabetes mellitus
CPT/HCPCS: 36415; 82950; 85025

== ENCOUNTER → 2020-02-19 14:15 | Outpatient (CLI) | payer OTHER, SELFPAY ==
[2020-02-15 15:28] VITALS: BMI 29.9
== END ==
PROVIDERS: PCP Family Medicine; Referring Provider Family Medicine; Visit Provider Family Medicine
DX: Z20.828 Contact with and (suspected) exposure to other viral communicable diseases (principal)
CPT/HCPCS: 87635; U0003

== ENCOUNTER → 2020-03-03 10:20 | Outpatient (CLI) | payer OTHER, SELFPAY ==
[2020-02-29 15:11] VITALS: BMI 30.1
== END ==
PROVIDERS: PCP Family Medicine; Visit Provider Physician Assistant Surgical
DX: U07.1 COVID-19 (principal)
CPT/HCPCS: 87635; C9803; U0003

== ENCOUNTER → 2020-03-11 08:49 | Outpatient (CLI) | payer OTHER, SELFPAY ==
[2020-03-04 09:57] VITALS: BMI 30.1
--- NOTE | 2020-03-11 08:51 | US_ITS ---
STUDY: SECOND AND THIRD TRIMESTER OBSTETRICAL ULTRASOUND - LIMITED REASON FOR EXAM: Female, 29 years old GROWTH -- PATIENT TESTED POSITIVE FOR COVID 14 DAYS AGO PRIOR ULTRASOUND: 09/20/2019 TECHNIQUE: Serial longitudinal and transverse scans of the abdomen were performed with real-time sector scanner. TECHNICAL QUALITY: Adequate. FINDINGS: There is a single intrauterine fetus. The fetus is in a cephalic presentation. There is demonstrated cardiac activity with a heart rate of 127 bpm. There is a normal amniotic fluid volume. The largest amniotic fluid pocket measures 3.85 x 4.7 cm. The amniotic fluid index (JANNET) is 12.9 cm. The placenta is anterior There are Grade 1 placental changes. The cervix measures 4.7 cm in length. BIOMETRY: BPD: 8.6: 34 weeks, 6 days HC: 31.5: 35 weeks, 2 days AC: 32.03: 35 weeks, 6 days FL: 7.01: 35 weeks, 6 days Age by LMP: 35 weeks, 4 days. ABRAM by LMP: 04/11/2020. age by prior US: 36 weeks, 3 days. ABRAM by prior US: 04/06/2020. age by current US: 35 weeks, 3 days. ABRAM by current US: 04/12/2020. Estimated weight: 2763 grams, +/- 409 grams, 51.4 percentile. US/OB Limited With Biometrics IMPRESSION: A single fetus is noted in cephalic presentation with a gestational age of 35 weeks 3 days based upon today''s ultrasound measurements. Electronically Signed: Zachery Kearney, at 16:48 EST Tel , Service support ,
== END ==
PROVIDERS: PCP Family Medicine; Referring Provider Obstetrics & Gynecology; Visit Provider Obstetrics & Gynecology
DX: O98.513 Other viral diseases complicating pregnancy, third trimester (principal); U07.1 COVID-19; Z3A.35 35 weeks gestation of pregnancy
CPT/HCPCS: 76816

== ENCOUNTER 2020-03-18 10:20 | Outpatient (CLI) | payer OTHER, SELFPAY ==
[2020-03-12 11:41] VITALS: BMI 30.2
[2020-03-18 10:42] VITALS: BMI 30.4
[2020-03-18 10:47] VITALS: BP 135/72; PULSE 89; TEMP 36.8; O2SAT 98
[2020-03-18 11:14] LABS: ROM Internal Control Test YES-OK TO RESULT pt. (Internal QC)
[2020-03-18 11:15] LABS: ROM Patient Test Negative (Negative)
--- NOTE | 2020-03-18 12:00 | OB.TRI.PN ---
Progress Notes Date of Service: 03/18/20 Progress Note: Patient presents for triage evaluation secondary to false labor FHT: 140 Moderate variability reactive no decelerations category I tracing [place]: no regular Contractions Assessment and plan: negative rom plus false labor Reactive NST, reassuring maternal and status patient discharged to home to follow-up as scheudled. See problem list details for additional plan information. Laboratory Studies: Laboratory Tests 03/18/20 Range/Units 10:45 Vag Amniotic Fld Detect Negative (Negative) - Problem List (1) Intact amniotic membranes during in third trimester Status: Acute (2) False labor Status: Acute Multi Select Codes - Urinary/Genital Urinary/Genital CPT Codes: 05380-20 non-stress test Interp
== END 2020-03-18 11:30 | disposition home or self-care (01) ==
PROVIDERS: PCP Family Medicine; Visit Provider Obstetrics & Gynecology
DX: O47.9 False labor, unspecified (principal); Z3A.00 Weeks of gestation of pregnancy not specified
CPT/HCPCS: 59025; 59050; 84112; 99218; G0378

== ENCOUNTER → 2020-03-21 16:59 | Outpatient (CLI) | payer OTHER, SELFPAY ==
[2020-03-21 15:13] VITALS: BMI 30.7
== END ==
PROVIDERS: PCP Family Medicine; Referring Provider Obstetrics & Gynecology; Visit Provider Obstetrics & Gynecology
DX: Z34.80 Encounter for supervision of other normal pregnancy, unspecified trimester (principal)
CPT/HCPCS: 87081

== ENCOUNTER → 2020-03-24 09:24 | Outpatient (CLI) | payer OTHER, SELFPAY ==
[2020-03-24 08:49] VITALS: BMI 30.6
[2020-03-24 09:49] LABS: ROM Internal Control Test YES-OK TO RESULT pt. (Internal QC); ROM Patient Test Negative (Negative)
== END ==
PROVIDERS: PCP Family Medicine; Referring Provider Nurse Practitioner Women's Health; Visit Provider Nurse Practitioner Women's Health
DX: Z34.80 Encounter for supervision of other normal pregnancy, unspecified trimester (principal)
CPT/HCPCS: 84112

== ENCOUNTER 2020-04-07 09:10 | Inpatient (IN) | payer OTHER, SELFPAY ==
[2020-02-01 15:05] VITALS: BMI 29.7
[2020-04-03 13:12] VITALS: BMI 31.4
[2020-04-07] VITALS (15 sets, daily range): BP systolic 110–146; BP diastolic 57–82; PULSE 74–88; RESP 16; TEMP 36.2–37.4; O2SAT 95–100; BMI 31.4
[2020-04-07] MEDS: Lactated Ringers 1,000 ML 999 ML IV (09:45)
[2020-04-07] MEDS: Acetaminophen 500 MG Tablet 1000 MG PO ×2 (10:02→16:53)
[2020-04-07 10:10] LABS: Absolute Neutrophil Count 5.9 X10^3/uL (2.0-7.7); Basophil# 0.02 X10^3/uL; Basophil% 0.3 % (0-1); Eosinophil# 0.03 X10^3/uL; Eosinophils% 0.4 % (0-5); Hematocrit 36.8 % (37-47); Hemoglobin 12.8 g/dL (12.0-15.0); Lymphocyte % 12.3 % (19-41); Mean Corp Hgb Conc 34.8 g/dL (32-36); Mean Corpuscular Hgb 30.8 pg (27.0-32.0); Mean Corpuscular Volume 88.7 fL (81-99); Monocyte# 0.41 X10^3/uL; Monocyte% 5.6 % (0-10); NRBC Flagged by Analyzer 0 % (0-5); Neutrophil # 5.88 X10^3/uL (2.7-7.7); Neutrophil % 80.6 % (47-70); POSITIVE COUNT YES; Platelet Count 92 K/mm3 (150-450); RBC Distribution Width CV 13.4 % (11.6-14.6); RBC Distribution Width SD 43.2 fl (35.1-43.9); Red Blood Count 4.15 M/mm3 (4.2-5.4); White Blood Count 7.3 K/mm3 (4.4-11.0)
--- NOTE | 2020-04-07 11:09 | HP.PCM_ITS ---
- Problem List (1) 30 weeks gestation of Status: Acute Comment: covid testing ordered 02/05/20 (2) Family history of cleft lip Status: Acute Comment: 2nd cousin, plan MFM US. (3) H/O section Status: Acute Comment: CPD; ROM greater than 24 hours; macrosomia. plan RLTCS with SM (4) Iron deficiency Status: Acute (5) Lab test positive for detection of COVID-19 virus Status: Acute Comment: 81mg aspirin and growth US-51% growth (6) Status: Acute Qualifiers: Comment: declined carrier and ntd screening, genetics low risk. anatomy us scheduled with MF, normal anatomy (7) Supervision of other normal Status: Acute Comment: PRR ABRAM 04/11/2020 girl Malissa PC: Sandeep Spouse: Matthew mujica (8) Thrombocytopenia affecting Status: Chronic Comment: s/p heme consult. follow. likely gestational. stable History and Physical Date of Admission: 04/07/20 Intake Vital Signs 04/03/20 Height 5 ft 5 in 04/03/20 Weight: 189 lb 04/03/20 BMI 31.4 04/03/20 BP 122/70 H Intake Visit Reasons: 39 WK OB Allergies acetaminophen [From Vicodin] Adverse Reaction (Intermediate, Verified 04/03/20 13:13) nausea and vomiting hydrocodone [From Vicodin] Adverse Reaction (Intermediate, Verified 04/03/20 13:13) nausea and vomiting Medications multivitamin no.47-iron fum 27 mg-folate no.1 1 mg-dha 300 mg capsule 1 cap PO DAILY 09/06/19 [History Confirmed 04/03/20] breast pump See Rx Instructions .ROUTE .MEDSUPPLY #1 ea 01/16/20 [Rx Confirmed 04/03/20] Aspirin [Aspirin, Baby] 81 mg PO DAILY@0800 03/18/20 [History Confirmed 04/03/20] Iron Polysaccharide Complex [Ferrex 150] 150 mg PO DAILY 03/18/20 [History Confirmed 04/03/20] hydrocortisone acetate 25 mg rectal suppository 25 mg RC BID #12 ea 03/26/20 [Rx Confirmed 04/03/20] hydrocortisone 2.5 % topical cream with perineal applicator 1 applic RC QD-BID PRN #30 g 03/28/20 [Rx Confirmed 04/03/20] Last Menstral Period: 03/20/20 [facility] Medical History History of hemorrhoids (Acute) history of child (Resolved) Surgical History H/O section (Acute) History of tonsillectomy and adenoidectomy (Acute) History of wisdom tooth extraction (Acute) Family History Grandmother Cancer Grandmother Cancer Social History (Updated 04/03/20 @ 13:[address] Carmen Fox MD) adopted: No household members: family housing: house number of children: 1 current occupational status: employed current occupation: [employer] pets and animals: Yes history of recent travel: No sexually active: Yes Smoking Status: Former smoker second hand exposure: No alcohol intake: current alcohol intake frequency: holidays/special occasions only details: not while substance use type: does not use seatbelt use: always do you feel safe at home: Yes additional social history: [employer] History 2 Elective abortions Hx Para 1 Spontaneous abortions Hx # Term Pregnancies Ectopic pregnancies Hx # Pregnancies Multiple births # of living children 1 Past Pregnancies Del. Date Name GA/Weeks Outcome Route Bth Weight Gen Labor Lgth Anesthesia Del Locatn Provider FOB Unknown 06/11/2017 Sandeep 41 live - full term 9lbs 15oz Male epidural [facility] Dr. Maddison Brown Delivery Date: CPD; prolonged pushing; water broke for more than 24 hours Stella Dang HPI 39 WK OB: Details: EZRA SLAUGHTER is a 29 year old who presents for RLTCS. . OB Visit ABRAM Calculator Estimated Delivery Date Method Current WG Current Estimate 04/11/20 LMP (Certain) 38w 6d Other Estimates 04/11/20 Ultrasound #1 38w 6d Expected Delivery Route/Plan RLTCS w/ SM Specific Issue/Plans flu vaccine: declines tdap vaccine: 01/15 rhogam: NA LARC form signed: declined movement and labor precautions reviewed. Problem list reviewed and updated with the most current plan of care details and appropriate orders placed. Relevant counseling for the gestational age provided. Continue routine care and follow up unless otherwise noted in visit notes/problem list details Initial Weight: 161 lb Date EGA Weight BP Urine Prot Glucose FHR FuHt Pres Dilation Effaced St Visit Note 10/05/19 13w 0d 160 lb (-16 oz) 160 lb (-16 oz) 106/80 Negative Negative 150 Sm- no vb cramping has fu cervical length US at 15 weeks 11/05/19 17w 3d 164 lb 4 oz (+3 lb 4 oz) 104/60 Negative Negative 150 SM- no vb lof cramping, recheck cbc today. 12/07/19 22w 0d 171 lb 4 oz (+10 lb 4 oz) 98/60 Negative Negative 145 SM- no vb lof cramping doing well, heme consult tuesday01/04/20 26w 0d 175 lb 4 oz (+14 lb 4 oz) 110/58 Negative Negative 140 27 GP - No LOF, VB, DFM, ctx. Passed GTT today. 01/16/20 27w 5d 177 lb 2 oz (+16 lb 2 oz) 128/58 Negative Negative 130 28 GP - Came to office day early due to DFM. Normal movement on arrival. No LOF, VB, Ctx. TDAP today. Declines flu. 02/01/20 30w 0d 178 lb 6 oz (+17 lb 6 oz) 118/70 Negative Negative 140 30 SM- no vb lof good fm no regular ctx 02/15/20 32w 0d 180 lb (+19 lb) 114/78 140 32 SM- no vb lof good fm no regular ctx 02/29/20 34w 0d 181 lb (+20 lb) 110/70 Negative Negative 140 34 Cephalic SM- no vb lof good fm no regular ctx 03/12/20 35w 5d 182 lb (+21 lb) 120/82 Negative Negative 125 35 Cephalic GP - no ctx, LOF, VB, DFM. Discussed management of after COVID. 03/21/20 37w 0d 184 lb 4 oz (+23 lb 4 oz) 130/86 Negative Negative 155 37 Cephalic 0 50 -3 GP -no ctx, LOF, VB, DFM. Hemorrhoids causing discomfort - encouraged supportive measures. 03/24/20 37w 3d 184 lb (+23 lb) 136/72 Negative Negative 144 Cephalic 0 50 MH-work in for ?rom. No CTX, VB. G ood FM. ROM pending. 03/28/20 38w 0d 120/74 Negative Negative 140 38 Cephalic 0.5 SM- no vb lof good fm n oregular ctx 04/03/20 38w 6d 189 lb (+28 lb) 122/70 Negative Negative 140 40 Cephalic SM- no vb lof good fm n oregular ctx ACOG First Trimester First Trimester: Desire for , Alcohol, Tobacco Cessation, Illicit/Recreational Drug/Substance Use, Intimate Partner Violence, Barriers to care, Unstable Housing, Communication Barriers, Environmental/Work Hazards, Anticipated Course of Care, Toxoplasmosis Precations, Use of Any medications, Sexual activity, Exercise, Dental Care, Sauna/Hot tub use, Seat Belt use, Childbirth classes/Hospital facilities, , Travel, Indications for US and Screening for Aneuploidy Second Trimester Second Trimester: Signs and Symptoms of Labor, Selecting a care provider, Reproductive Life Planning, Care Planning, Tobacco Cessation, Depression/Anxiety and Intimate Partner Violence Third Trimester Third Trimester: Pain Management Plans, Labor support person(s), Immediate Larc, Movement Monitoring and Infant Feeding Yes ; discussed Trial of Labor after Counseling or discussed Circumcision preference Diagnostics Diagnostics Diagnostics Hgb 13.1 g/dL (12.0-15.0) 03/31/20 Hct 38.5 % (37-47) 03/31/20 Details: HIV: Urine Culture: Sequential Screen: NIPT Screen: ROS Const Reports system reviewed and no additional complaints, except as docu Card Reports system reviewed and no additional complaints, except as docu Resp Reports system reviewed and no additional complaints, except as docu GI Reports system reviewed and no additional complaints, except as docu, Reports nausea Reports system reviewed and no additional complaints, except as docu Musc Reports system reviewed and no additional complaints, except as docu Exam Const General: cooperative, healthy appearing, comfortable, anxious HENMT Head: normal to inspection Nose: external nose normal Face and sinus: normal facial exam Neck Neck: normal visual inspection, full ROM, no lymphadenopathy Thyroid: thyroid normal Chest Chest palpation & inspection: normal inspection of the chest Resp Effort & Inspection: normal respiratory effort GI Inspection: normal to inspection Palpation: soft, other (gravid uterus) Other: infant vertex and appropriate size for gestational age Other: Cervical Exam: Extrem General: pedal edema Assessment & Plan 29 yo @ 39 weeks presents for RLTCS gestational thrombocytopenia- stable, s/p heme consult Coding Level of Care Code OB Routine UPDATE- I have seen the patient and performed any clinically relevant updates to the history and physical exam. Carmen Fox MD
[2020-04-07] MEDS: Lactated Ringers 1,000 ML 150 ML IV (11:54)
[2020-04-07 12:05] LABS: Hematocrit 36.5 % (37-47); Hemoglobin 12.6 g/dL (12.0-15.0); Mean Corp Hgb Conc 34.5 g/dL (32-36); Mean Corpuscular Hgb 30.9 pg (27.0-32.0); Mean Corpuscular Volume 89.5 fL (81-99); Mean Platelet Vol. 12.4 fl (6.2-12.0); POSITIVE COUNT YES; Platelet Count 93 K/mm3 (150-450); RBC Distribution Width CV 13.6 % (11.6-14.6); RBC Distribution Width SD 43.4 fl (35.1-43.9); Red Blood Count 4.08 M/mm3 (4.2-5.4); White Blood Count 7.2 K/mm3 (4.4-11.0)
[2020-04-07] MEDS: Sodium Citrate/Citric Acid 30 ML UDC PO (12:11)
[2020-04-07] MEDS: Cefazolin 2 GM in 0.9% Normal Saline 100 ML IV (12:11)
--- NOTE | 2020-04-07 12:11 | OP.PCM_ITS ---
Problem List (1) 30 weeks gestation of Status: Acute Comment: covid testing ordered 02/05/20 (2) Family history of cleft lip Status: Acute Comment: 2nd cousin, plan MFM US. (3) H/O section Status: Acute Comment: CPD; ROM greater than 24 hours; macrosomia. plan RLTCS with SM (4) Iron deficiency Status: Acute (5) Lab test positive for detection of COVID-19 virus Status: Acute Comment: 81mg aspirin and growth US-51% growth (6) Status: Acute Qualifiers: Comment: declined carrier and ntd screening, genetics low risk. anatomy us scheduled with MFM, normal anatomy (7) Supervision of other normal Status: Acute Comment: PRR ABRAM 04/11/2020 girl Malissa PC: Sandeep Spouse: Kvein (8) Thrombocytopenia affecting Status: Chronic Comment: s/p heme consult. follow. likely gestational. stable (9) Atony of uterus without hemorrhage Status: Acute Delivery Classification: Scheduled Final ABRAM: 04/11/20 Gestational age: 39 Weeks and 4 Days mathematics instructor: Miley Iraheta Type of Anesthesia:: General Special Medications: cristian, methergine Implants Used: none Date of Procedure: 04/07/20 Pre-Operative Diagnosis: previuos , gestational thrombocytopenia Post-Operative Diagnosis: same Indications for : Repeat Elective Description of Procedure: The patient is a 29 yo @ 39 weeks presented for repeat . Adan catheter was placed. The patient was placed in the dorsal supine position with leftward tilt. Patient was prepped and draped in the normal sterile fashion. Patient was placed under general anesthesia due to gestational thrombocytopenia. Pfannenstiel skin incision was made with the scalpel and carried through to the underlying layer of fascia with the scalpel. Fascia was nicked in the midline and the incision extended laterally. The rectus bellies were dissected off superiorly and inferiorly with out complication both sharply and bluntly. The peritoneum was entered digitally. The incision was stretched and a low transverse uterine incision was made with the scalpel. The infant's head was delivered atraumatically followed by the anterior and posterior shoulders without complication the rest of the delivered. The cord was clamped and cut and the was handed off to awaiting nurse. The placenta was delivered spontaneously immediately following and was noted to be intact and have a three- vessel cord. The uterus was exteriorized cleared of all clots and debris, and the incision was closed in a double layer closure using #1 Monocryl. mild uterine atony without hemorrhage was treated with methergine and pitocin and bimanual massage. The ovaries and fallopian tubes were noted to be within normal limits. The uterus was returned to the maternal abdomen and gutters were cleared of all clots and debris. cristian applied ot incision for excellent hemostasis. The peritoneum was closed with 3-0 Monocryl in a running fashion. Gloves were changed prior to fascial closure. Fascia was closed with 0 PDS in a running fashion. Subcutaneous tissue was copiously irrigated and the skin was closed with 3-0 Monocryl in a subcuticular fashion. Mepilex dressing was applied without complication. Patient was taken to recovery in stable condition. Amniotic Membrane Rupture Type: Artificial Amniotic Fluid Description: Clear Placenta Disposition: [facility] Drain: Adan to straight drain Cord Entanglement: None Esitmated Blood Loss (ml): 900 Gender: Female Delayed cord clamping: No Antibiotic Given: Ancef 2 grams IV x1 Pt instructed on risks of surgery: Bleeding, Anesthesia Risks, Infection, Injury to surrounding structure(s) including bowel and bladder - Admit VTE Documentation VTE Present on Admission: No Multi Select Codes - Urinary/Genital Urinary/Genital CPT Codes: 26793 Delivery [facility]
[2020-04-07] MEDS: Methylergonovine 0.2 MG/ML Ampul IM (12:50)
[2020-04-07] MEDS: Oxytocin 30 units/NS 500 ml 30 UNITS/500 ML IV.SOLN 167 UNITS IV (13:38)
[2020-04-07] MEDS: HYDROmorphone 1 MG/ML Syringe IV ×2 (14:08→16:54)
[2020-04-07] MEDS: Lactated Ringers 1,000 ML 100 ML IV (16:53)
[2020-04-07] MEDS: Ketorolac 30 MG/ML Syringe IV (19:37)
[2020-04-07] MEDS: 0.9% Saline Lock 10 ML Syringe IV (19:37)
[2020-04-07] MEDS: oxyCODONE 5 MG Tablet PO (22:14)
--- NOTE | 2020-04-07 22:28 | NURSING ---
Pt. uterus boggy with this belly check. Fundal massage performed and pt. got aggitated. Stated that last nurses didn't have to do that and that we should wait until pain medicines kick in next time. Oxyir just given for pain, and toradol was given about 2 hours ago. Education was given about boggy fundus, bleeding, and fundal massage. Pt. seemed aggitated but verbalized understanding.
[2020-04-08] MEDS: Acetaminophen 500 MG Tablet 1000 MG PO ×4 (00:03→19:30)
[2020-04-08 00:11] VITALS: BP 114/63; PULSE 81; RESP 16; O2SAT 97
[2020-04-08] MEDS: Ketorolac 30 MG/ML Syringe IV ×3 (01:00→12:55)
[2020-04-08] MEDS: 0.9% Saline Lock 10 ML Syringe IV ×2 (01:00→22:53)
--- NOTE | 2020-04-08 01:38 | NURSING ---
0016- Pt. reported intense pain that came out of no where, then a moderate amount of lochia was noted. Fundal check performed and pt. firm at u/u. Charge nurse Waldemar Fung RN called to assess pt. bleeding since moderate amount of lochia came out in spurts and pt. pain was so sudden. Nallely-care performed and then pt. to rest. Heating pad applied and medications given as due. 0130- Pt. called back out to RN d/t intense sharp pain happening again. This RN noticed it happens as pt. is holding infant. No increased lochia noted, just a scant to small amount on pad. Fundus still u/u with no drainage on mepilex. Ice pack applied to incision to see if that helps as well with the pain. Will continue to monitor.
[2020-04-08] MEDS: oxyCODONE 5 MG Tablet PO ×4 (02:21→16:13)
[2020-04-08 04:30] VITALS: BP 95/55; PULSE 89; RESP 16; TEMP 36.6; O2SAT 97
[2020-04-08 06:38] LABS: Hematocrit 29.9 % (37-47); Hemoglobin 10.1 g/dL (12.0-15.0); Mean Corp Hgb Conc 33.8 g/dL (32-36); Mean Corpuscular Hgb 30.5 pg (27.0-32.0); Mean Corpuscular Volume 90.3 fL (81-99); Mean Platelet Vol. 12.4 fl (6.2-12.0); POSITIVE COUNT YES; Platelet Count 86 K/mm3 (150-450); RBC Distribution Width CV 13.6 % (11.6-14.6); RBC Distribution Width SD 44.8 fl (35.1-43.9); Red Blood Count 3.31 M/mm3 (4.2-5.4)
--- NOTE | 2020-04-08 07:52 | PN.OBGYN_ITS ---
Patient Problems: Active and Suspected Problems (Last Reviewed 04/03/20 @ 13:13 by Ashley Menezes) Lab test positive for detection of COVID-19 virus (Acute) 81mg aspirin and growth US-51% growth Iron deficiency (Acute) 30 weeks gestation of (Acute) covid testing ordered 02/05/20 Family history of cleft lip (Acute) 2nd cousin, plan MFM US. H/O section (Acute) CPD; ROM greater than 24 hours; macrosomia. plan RLTCS with [facility] Supervision of other normal (Acute) PRR ABRAM 04/11/2020 girl Malissa PC: Sandeep Spouse: Kevin (Acute) declined carrier and ntd screening, genetics low risk. anatomy us scheduled with MFM, normal anatomy Subjective: Patient doing well, some discomfort from bowel gas, no flatus yet. Tolerating PO. Ambulating and voiding without difficulty. Breast feeding with some difficulty. Denies chest pain, shortness of breath, calf pain/swelling, fevers, chills, lightheadedness. - Physical Exam Vitals/I&O's: Vital Signs Temp Pulse Resp BP Pulse Ox 97.9 F 89 16 95/55 L 97 04/08/20 04:30 04/08/20 04:30 04/08/20 04:30 04/08/20 04:30 04/08/20 04:30 Oxygen Delivery Method Room Air Weight: 188 lb 11.451 oz Body Mass Index (BMI) 31.4 Intake and Output for Last 24 Hours 04/06/20 04/07/20 04/08/20 23:59 23:59 23:59 Intake Total 2925 / 2925 733.33 / 733.33 Output Total 400 / 400 900 / 900 Balance 2525 / 2525 -166.67 / -166.67 General: Oriented x3 Abdomen: Soft, Distended, - - FF below U. Dressing dry and intact. Laboratory Results 04/07/20 09:45: WBC 7.3, RBC 4.15 L, Hgb 12.8, Hct 36.8 L, MCV 88.7, MCH 30.8, MCHC 34.8, RDW Std Deviation 43.2, RDW Coeff of Martita 13.4, Plt Count 92 L, MPV 13.0 H, Immature Gran % (Auto) 0.800, Neut % (Auto) 80.6 H, Lymph % (Auto) 12.3 L, [place] % (Auto) 5.6, Eos % (Auto) 0.4, Baso % (Auto) 0.3, Absolute Neuts (auto) 5.9, Absolute Lymphs (auto) 0.90, Nucleated RBC % 0 04/07/20 09:45: Blood Type O POSITIVE, Antibody Screen NEGATIVE 04/07/20 11:50: WBC 7.2, RBC 4.08 L, Hgb 12.6, Hct 36.5 L, MCV 89.5, MCH 30.9, MCHC 34.5, RDW Std Deviation 43.4, RDW Coeff of Martita 13.6, Plt Count 93 L, MPV 12.4 H 04/08/20 06:30: WBC 9.0, RBC 3.31 L, Hgb 10.1 L, Hct 29.9 L, MCV 90.3, MCH 30.5, MCHC 33.8, RDW Std Deviation 44.8 H, RDW Coeff of Martita 13.6, Plt Count 86 L, MPV 12.4 H Current Medications Acetaminophen (Acetaminophen 500 Mg Tablet) 1,000 mg PO Q6 [facility] Last Admin: 04/08/20 06:05 Dose: 1,000 mg Documented by: Bisacodyl (Bisacodyl 10 Mg Suppository) 10 mg RECTAL UD PRN PRN Reason: If no BM Hydrocortisone (Hydrocortisone 2.5% Crm) 1 applic TOPICAL TID PRN PRN; Protocol PRN Reason: Discomfort Hydromorphone HCl (Hydromorphone 1 Mg/Ml Syringe) 0.5 - 1.5 mg IV Q3H PRN PRN PRN Reason: Pain Score 4-10 Stop: 04/08/20 12:55 Last Admin: 04/07/20 16:54 Dose: 1 mg Documented by: Lactated Ringer's () 1,000 mls @ 100 mls/hr IV .Q10H [facility] Last Admin: 04/08/20 07:47 Dose: Not Given Documented by: Ketorolac Tromethamine (Ketorolac 30 Mg/Ml Syringe) 30 mg IV Q6H [facility] Stop: 04/08/20 13:01 Last Admin: 04/08/20 01:00 Dose: 30 mg Documented by: Methylergonovine Maleate (Methylergonovine 0.2 Mg/Ml Ampul) 0.2 mg IM X1 PRN PRN Reason: Uterine Atony Last Admin: 04/07/20 12:50 Dose: 0.2 mg Documented by: Naproxen (Naproxen 250 Mg Tablet) 500 mg PO Q8H [facility] Ondansetron HCl (Ondansetron 4 Mg/2 Ml Vial) 4 mg IV Q4H PRN PRN PRN Reason: Nausea Oxycodone HCl (Oxycodone 5 Mg Tablet) 5 - 10 mg PO Q4H PRN PRN PRN Reason: Pain Score 4-10 Last Admin: 04/08/20 06:39 Dose: 5 mg Documented by: Prochlorperazine Edisylate (Prochlorperazine 10 Mg/2 Ml Vial) 10 mg IV Q6H PRN PRN PRN Reason: NAUSEA Senna/Docusate Sodium (Senna/Docusate Sodium 1 Tablet) 0 tablet PO DAILY [facility] Simethicone (Simethicone 80 Mg Tablet) 80 mg PO PCHS PRN PRN Reason: Indigestion/stomach pain Last Admin: 04/08/20 06:39 Dose: 80 mg Documented by: Sodium Chloride (0.9% Saline Lock 10 Ml Syringe) 5 - 15 ml IV UD PRN PRN Reason: SALINE FLUSH Last Admin: 04/08/20 01:00 Dose: 10 ml Documented by: Medical Necessity - Tobacco Use Smoking Status: Former smoker Assessment/Plan All Active Problems (Last Reviewed 04/03/20 @ 13:13 by Ashley Menezes) Lab test positive for detection of COVID-19 virus (Acute) Iron deficiency (Acute) 30 weeks gestation of (Acute) Family history of cleft lip (Acute) H/O section (Acute) Supervision of other normal (Acute) (Acute) Contact dermatitis due to poison hannah (Resolved) False labor (Resolved) Intact amniotic membranes during in third trimester (Resolved) s/p LTCS PPD # 1. routine post care 2. breast feeding- support given 3. rh positive 4. rubella immune 5. slight decrease platelets, Dr Fox aware/no repeat at this time. 6. reviewed support for bowel gas.
[2020-04-08 08:00] VITALS: BP 115/70; PULSE 72; RESP 14; TEMP 36.8; O2SAT 99
[2020-04-08] MEDS: Senna/Docusate Sodium 1 Tablet PO (08:02)
--- NOTE | 2020-04-08 10:15 | NURSING ---
Pt passed large clot in toilet. pt back to bed fundus checked. Dr. Fox in room to assess pt.
[2020-04-08] MEDS: Methylergonovine 0.2 MG/ML Ampul IM (10:22)
[2020-04-08 12:00] VITALS: BP 99/50; PULSE 83; RESP 14; TEMP 36.8; O2SAT 97
[2020-04-08 12:13] LABS: Absolute Lymphocyte Count 1.01 X10^3/uL (0.83-4.51); Absolute Neutrophil Count 8.8 X10^3/uL (2.0-7.7); Basophil# 0.01 X10^3/uL; Basophil% 0.1 % (0-1); Differential Indicated SCAN CRITERIA MET; Eosinophil# 0.06 X10^3/uL; Eosinophils% 0.6 % (0-5); Hematocrit 32.3 % (37-47); Lymphocyte # 1.01 X10^3/ul (4.0); Lymphocyte % 9.4 % (19-41); Mean Corp Hgb Conc 34.1 g/dL (32-36); Mean Corpuscular Hgb 30.6 pg (27.0-32.0); Mean Platelet Vol. 12.5 fl (6.2-12.0); Monocyte# 0.82 X10^3/uL; Monocyte% 7.6 % (0-10); NRBC Flagged by Analyzer 0 % (0-5); Neutrophil # 8.77 X10^3/uL (2.7-7.7); Neutrophil % 81.8 % (47-70); POSITIVE COUNT YES; Platelet Count 92 K/mm3 (150-450); RBC Distribution Width CV 13.7 % (11.6-14.6); Red Blood Count 3.59 M/mm3 (4.2-5.4); White Blood Count 10.7 K/mm3 (4.4-11.0)
[2020-04-08 12:56] LABS: Platelet Estimate MOD DEC (ADEQ)
[2020-04-08 16:53] VITALS: BP 108/55; PULSE 83; RESP 16; TEMP 36.6
[2020-04-08] MEDS: HYDROmorphone 1 MG/ML Syringe IV ×2 (17:39→22:52)
[2020-04-08] MEDS: Naproxen 250 MG Tablet 500 MG PO (19:31)
[2020-04-08 19:57] VITALS: BP 121/68; PULSE 89; RESP 16; TEMP 36.6
--- NOTE | 2020-04-08 23:00 | NURSING ---
This RN in room to medicate patient after pt up to bathroom. Pt complains of itching on arms and legs, states she has been having it throughout today but did not mention it to anyone. No skin irregularities noted, skin intact, no warmth or redness.
[2020-04-09 01:00] VITALS: BP 93/48; PULSE 89; RESP 16; TEMP 37
[2020-04-09] MEDS: Acetaminophen 500 MG Tablet 1000 MG PO ×2 (01:25→07:46)
--- NOTE | 2020-04-09 01:55 | NURSING ---
pt denies feeling dizzy or lightheaded. pt also reports she normally has low BP after she has been asleep. will continue to monitor.
[2020-04-09] MEDS: Naproxen 250 MG Tablet 500 MG PO ×2 (03:30→09:59)
[2020-04-09] MEDS: oxyCODONE 5 MG Tablet PO (06:00)
--- NOTE | 2020-04-09 07:50 | PN.OBGYN_ITS ---
Patient Problems: Active and Suspected Problems (Last Reviewed 04/03/20 @ 13:13 by Ashley Menezes) Atony of uterus without hemorrhage (Acute) Lab test positive for detection of COVID-19 virus (Acute) 81mg aspirin and growth US-51% growth Iron deficiency (Acute) 30 weeks gestation of (Acute) covid testing ordered 02/05/20 Family history of cleft lip (Acute) 2nd cousin, plan MFM US. H/O section (Acute) CPD; ROM greater than 24 hours; macrosomia. plan RLTCS with [facility] Supervision of other normal (Acute) PRR ABRAM 04/11/2020 girl Malissa PC: Sandeep Spouse: Kevin (Acute) declined carrier and ntd screening, genetics low risk. anatomy us scheduled with [facility], normal anatomy Subjective: Patient doing well without complaints. Passing flatus and feeling much better. Tolerating PO. Ambulating and voiding without difficulty. feeding well. Denies chest pain, shortness of breath, calf pain/swelling, fevers, chills, lightheadedness. - Physical Exam Vitals/I&O's: Vital Signs Temp Pulse Resp BP Pulse Ox 98.6 F 89 16 93/48 L 97 04/09/20 01:00 04/09/20 01:00 04/09/20 01:00 04/09/20 01:00 04/08/20 12:00 Oxygen Delivery Method Room Air Weight: 188 lb 11.451 oz Body Mass Index (BMI) 31.4 Intake and Output for Last 24 Hours 04/07/20 04/08/20 04/09/20 23:59 23:59 23:59 Intake Total 2925 / 2925 733.33 / 733.33 Output Total 400 / 400 1450 / 1450 Balance 2525 / 2525 -716.67 / -716.67 General: Alert, Oriented x3, Cooperative Abdomen: Soft, Non-Distended, - - FF below U. Dressing dry and intact. Less distended. Appropriately tender Laboratory Results 04/08/20 11:55: WBC 10.7, RBC 3.59 L, Hgb 11.0 L, Hct 32.3 L, MCV 90.0, MCH 30.6, MCHC 34.1, RDW Std Deviation 45.0 H, RDW Coeff of Martita 13.7, Plt Count 92 L , MPV 12.5 H, Immature Gran % (Auto) 0.500, Neut % (Auto) 81.8 H, Lymph % (Auto) 9.4 L, [place] % (Auto) 7.6, Eos % (Auto) 0.6, Baso % (Auto) 0.1, Absolute Neuts (auto) 8.8 H, Absolute Lymphs (auto) 1.01, Nucleated RBC % 0, Platelet Estimate MOD DEC Current Medications Acetaminophen (Acetaminophen 500 Mg Tablet) 1,000 mg PO Q6 COUNTS INCLUDE 234 BEDS AT THE [facility] Last Admin: 04/09/20 07:46 Dose: 1,000 mg Documented by: Bisacodyl (Bisacodyl 10 Mg Suppository) 10 mg RECTAL UD PRN PRN Reason: If no BM Hydrocortisone (Hydrocortisone 2.5% Crm) 1 applic TOPICAL TID PRN PRN; Protocol PRN Reason: Discomfort Hydromorphone HCl (Hydromorphone 1 Mg/Ml Syringe) 1 mg IV Q2H PRN PRN PRN Reason: BREAKTHROUGH PAIN (>4/10) Last Admin: 04/08/20 22:52 Dose: 1 mg Documented by: Lactated Ringer's () 1,000 mls @ 100 mls/hr IV .Q10H COUNTS INCLUDE 234 BEDS AT THE [facility] Last Admin: 04/09/20 07:39 Dose: Not Given Documented by: Methylergonovine Maleate (Methylergonovine 0.2 Mg/Ml Ampul) 0.2 mg IM X1 PRN PRN Reason: Uterine Atony Last Admin: 04/07/20 12:50 Dose: 0.2 mg Documented by: Naproxen (Naproxen 250 Mg Tablet) 500 mg PO Q8H COUNTS INCLUDE 234 BEDS AT THE [facility] Last Admin: 04/09/20 03:30 Dose: 500 mg Documented by: Ondansetron HCl (Ondansetron 4 Mg/2 Ml Vial) 4 mg IV Q4H PRN PRN PRN Reason: Nausea Oxycodone HCl (Oxycodone 5 Mg Tablet) 5 - 10 mg PO Q4H PRN PRN PRN Reason: Pain Score 4-10 Last Admin: 04/09/20 06:00 Dose: 5 mg Documented by: Prochlorperazine Edisylate (Prochlorperazine 10 Mg/2 Ml Vial) 10 mg IV Q6H PRN PRN PRN Reason: NAUSEA Senna/Docusate Sodium (Senna/Docusate Sodium 1 Tablet) 0 tablet PO DAILY [facility] Last Admin: 04/08/20 08:02 Dose: 1 tablet Documented by: Simethicone (Simethicone 80 Mg Tablet) 80 mg PO PCHS PRN PRN Reason: Indigestion/stomach pain Last Admin: 04/08/20 17:13 Dose: 80 mg Documented by: Sodium Chloride (0.9% Saline Lock 10 Ml Syringe) 5 - 15 ml IV UD PRN PRN Reason: SALINE FLUSH Last Admin: 04/08/20 22:53 Dose: 10 ml Documented by: Medical Necessity - Tobacco Use Smoking Status: Former smoker Assessment/Plan All Active Problems (Last Reviewed 04/03/20 @ 13:13 by Ashley Menezes) Atony of uterus without hemorrhage (Acute) Lab test positive for detection of COVID-19 virus (Acute) Iron deficiency (Acute) 30 weeks gestation of (Acute) Family history of cleft lip (Acute) H/O section (Acute) Supervision of other normal (Acute) (Acute) Contact dermatitis due to poison hannah (Resolved) False labor (Resolved) Intact amniotic membranes during in third trimester (Resolved) s/p LTCS PPD # 2 1. routine post care 2. breast feeding- support given 3. rh positive 4. rubella immune 5. home today
--- NOTE | 2020-04-09 07:52 | DCINST_ITS ---
Additional Instructions: If you experience any of the following, contact your healthcare provider. * Bleeding that soaks a pad every hour for 2 hours * Fever 100.4 or higher * Unrelieved incision or abdominal pain * Swelling, redness, discharge or bleeding from your incision or episiotomy site * Your incision begins to separate * Problems urinating (including inability to urinate or burning while urinating). * Visual changes * Severe headache * Flu-like symptoms * Pain or redness in one of both of your breasts * Pain, warmth, tenderness or swelling in your legs, especially the calf area * Frequent nausea and vomiting * Symptoms of depression or anxiety If you experience any of the following, call 911 or go to the nearest Emergency Room. * Chest pain * Problems breathing * Seizure activity * Partial or complete paralysis of a body part, slurred speech, weakness or drooping of the face, or a sudden inability to walk or hold your balance Allergies/Adverse Reactions: Allergies hydrocodone [From Vicodin] Adverse Reaction (Intermediate, Verified 04/03/20 13:13) nausea and vomiting Medications to take at Discharge multivitamin no.47-iron fum 27 mg-folate no.1 1 mg-dha 300 mg capsule 1 cap PO DAILY 09/06/19 breast pump See Rx Instructions .ROUTE .MEDSUPPLY #1 ea 01/16/20 Aspirin [Aspirin, Baby] 81 mg PO DAILY@0800 03/18/20 Iron Polysaccharide Complex [Ferrex 150] 150 mg PO DAILY 03/18/20 hydrocortisone 2.5 % topical cream with perineal applicator 1 applic RC QD-BID PRN #30 g 03/28/20 Hydrocortisone Acetate 25 mg RC BID 04/07/20 Follow-Up: Call to make an appointment with your doctor for an incision check in 1-2 weeks. You will also need a 6 week post- follow up appointment. Test results from this visit will be discussed in further detail at your follow- up appointment, if applicable. Primary Care Physician: Lowell Mcqueen MD [Primary Care Provider] -
--- NOTE | 2020-04-09 07:52 | PCM.DCCSEC ---
Additional Instructions: If you experience any of the following, contact your healthcare provider. Bleeding that soaks a pad every hour for 2 hours Fever 100.4 or higher Unrelieved incision or abdominal pain Swelling, redness, discharge or bleeding from your incision or episiotomy site Your incision begins to separate Problems urinating (including inability to urinate or burning while urinating). Visual changes Severe headache Flu-like symptoms Pain or redness in one of both of your breasts Pain, warmth, tenderness or swelling in your legs, especially the calf area Frequent nausea and vomiting Symptoms of depression or anxiety If you experience any of the following, call 911 or go to the nearest Emergency Room. Chest pain Problems breathing Seizure activity Partial or complete paralysis of a body part, slurred speech, weakness or drooping of the face, or a sudden inability to walk or hold your balance Allergies/Adverse Reactions: Allergies hydrocodone [From Vicodin] Adverse Reaction (Intermediate, Verified 04/03/20 13:13) nausea and vomiting Medications to take at Discharge multivitamin no.47-iron fum 27 mg-folate no.1 1 mg-dha 300 mg capsule 1 cap PO DAILY 09/06/19 breast pump See Rx Instructions .ROUTE .MEDSUPPLY #1 ea 01/16/20 Aspirin [Aspirin, Baby] 81 mg PO DAILY@0800 03/18/20 Iron Polysaccharide Complex [Ferrex 150] 150 mg PO DAILY 03/18/20 hydrocortisone 2.5 % topical cream with perineal applicator 1 applic RC QD-BID PRN #30 g 03/28/20 Hydrocortisone Acetate 25 mg RC BID 04/07/20 Follow-Up: Call to make an appointment with your doctor for an incision check in 1-2 weeks. You will also need a 6 week post- follow up appointment. Test results from this visit will be discussed in further detail at your follow-up appointment, if applicable. Primary Care Physician: Lowell Mcqueen MD [Primary Care Provider] -
[2020-04-09 08:35] VITALS: BP 112/58; PULSE 83; RESP 14; TEMP 36.7
[2020-04-09] MEDS: Senna/Docusate Sodium 1 Tablet PO (09:59)
== END 2020-04-09 11:20 | disposition home or self-care (01) | DRG 788 ==
PROVIDERS: Anesthesiology; Admitting Provider Obstetrics & Gynecology; PCP Family Medicine; Referring Provider Obstetrics & Gynecology; Visit Provider Obstetrics & Gynecology
PROC: 10D00Z1 Extraction of Products of Conception, Low, Open Approach (ICD-10-PCS; CPT 59514; principal; 2020-04-07 11:45)
DX: O99.12 Other diseases of the blood and blood-forming organs and certain disorders involving the immune mechanism complicating childbirth (principal); D69.6 Thrombocytopenia, unspecified; O34.211 Maternal care for low transverse scar from previous cesarean delivery; Z3A.39 39 weeks gestation of pregnancy; Z37.0 Single live birth; O33.9 Maternal care for disproportion, unspecified; Z87.891 Personal history of nicotine dependence
CPT/HCPCS: 85025; 85027; 86850; 86900; 86901; 99218; J7120; A4216; G0378

== ENCOUNTER → 2020-04-21 11:21 | Outpatient (CLI) | payer OTHER, SELFPAY ==
[2020-04-21 11:04] VITALS: BMI 26.4
[2020-04-21 11:53] LABS: Absolute Lymphocyte Count 1.52 X10^3/uL (0.83-4.51); Absolute Neutrophil Count 5.6 X10^3/uL (2.0-7.7); Basophil# 0.05 X10^3/uL; Basophil% 0.6 % (0-1); Eosinophil# 0.13 X10^3/uL; Eosinophils% 1.7 % (0-5); Hematocrit 42.8 % (37-47); Lymphocyte # 1.52 X10^3/ul (4.0); Lymphocyte % 19.5 % (19-41); Mean Corp Hgb Conc 32.7 g/dL (32-36); Mean Corpuscular Hgb 29.8 pg (27.0-32.0); Mean Corpuscular Volume 91.1 fL (81-99); Mean Platelet Vol. 10.9 fl (6.2-12.0); Monocyte# 0.45 X10^3/uL; Monocyte% 5.8 % (0-10); NRBC Flagged by Analyzer 0 % (0-5); Neutrophil # 5.61 X10^3/uL (2.7-7.7); Platelet Count 274 K/mm3 (150-450); RBC Distribution Width SD 42.9 fl (35.1-43.9); White Blood Count 7.8 K/mm3 (4.4-11.0)
== END ==
PROVIDERS: PCP Family Medicine; Referring Provider Obstetrics & Gynecology; Visit Provider Obstetrics & Gynecology
DX: D62 Acute posthemorrhagic anemia (principal); N93.9 Abnormal uterine and vaginal bleeding, unspecified
CPT/HCPCS: 36415; 85025

== ENCOUNTER → 2022-07-29 | Outpatient (CLI) | payer BC, SELFPAY ==
[2022-07-29 17:00] LABS: NATERA MAILED SPECIMEN
[2022-08-05 13:07] LABS: HPV APTIMA, High Risk Negative (Negative)
== END | disposition home or self-care (01) ==
PROVIDERS: PCP Family Medicine; Referring Provider Nurse Practitioner Women's Health; Visit Provider Nurse Practitioner Women's Health
DX: Z01.419 Encounter for gynecological examination (general) (routine) without abnormal findings (principal); Z80.3 Family history of malignant neoplasm of breast
CPT/HCPCS: 36415; 87624; 88175; G0145

== ENCOUNTER → 2024-03-19 | Outpatient (CLI) | payer BC, SELFPAY ==
[2024-03-19 10:32] LABS: Absolute Lymphocyte Count 1.27 X10^3/uL (0.83-4.51); Basophil# 0.03 X10^3/uL; Basophil% 0.5 % (0-1); Eosinophil# 0.04 X10^3/uL; Eosinophils% 0.7 % (0-5); Hematocrit 39.9 % (37-47); Lymphocyte # 1.27 X10^3/ul (0.83-4.51); Lymphocyte % 22.4 % (19-41); Mean Corp Hgb Conc 32.6 g/dL (32-36); Mean Corpuscular Hgb 28.4 pg (27.0-32.0); Mean Corpuscular Volume 87.3 fL (81-99); Mean Platelet Vol. 12.2 fl (6.2-12.0); Monocyte# 0.32 X10^3/uL; Monocyte% 5.6 % (0-10); NRBC Flagged by Analyzer 0 % (0-5); Neutrophil % 70.4 % (47-70); Platelet Count 154 K/mm3 (150-450); RBC Distribution Width CV 12.1 % (11.6-14.6); RBC Distribution Width SD 38.8 fl (35.1-43.9); Red Blood Count 4.57 M/mm3 (4.2-5.4); White Blood Count 5.7 K/mm3 (4.4-11.0)
[2024-03-19 11:17] LABS: ALB/GLOB Ratio 1.1 RATIO (0.9-2.4); AST(SGOT) 13 U/L (15-37); Alanine Aminotransfer ALT/SGPT 20 U/L (13-56); Albumin, Serum 4.1 g/dL (3.2-5.0); Alkaline Phosphatase 40 U/L (45-117); Anion Gap 6 (5-15); BUN 12 mg/dL (7-18); BUN/Creat Ratio 17.7 RATIO (10-20); CRP < 2.90 mg/L (0.0-3.0); Calcium,Total 9.1 mg/dL (8.5-10.1); Chloride 107 mmol/L (98-107); Creatinine, Serum 0.68 mg/dL (0.55-1.02); EST Glomerular Filtration Rate 107 mL/min (>60); Est Glom Filt Rate - Afr Amer 129 mL/min (>60); Globulin 3.8 g/dL (2.2-4.2); Glucose 98 mg/dL (74-106); Magnesium 2.4 mg/dL (1.6-2.6); Potassium 3.7 mmol/L (3.5-5.1); Protein, Total 7.9 g/dL (6.4-8.2); Sodium Level 138 mmol/L (136-145); T4 Free Direct 0.92 ng/dL (0.76-1.46)
[2024-03-20 07:09] LABS: Toxoplasma Gondii IgM < 3.0 AU/mL (0.0-7.9)
[2024-03-20 11:09] LABS: ANTINUCLEAR ANTIBODIES DIRECT Negative (Negative)
== END | disposition home or self-care (01) ==
LOC: MFPLAB 09:19
PROVIDERS: PCP Family Medicine; Visit Provider Family Medicine
DX: R00.2 Palpitations (principal)
CPT/HCPCS: 36415; 80053; 83735; 84439; 84443; 85025; 86038; 86140; 86778